=== PATIENT | female | born 1975 | race Caucasian/White ===

== ENCOUNTER 2018-05-12 17:53 | Emergency (ER) | payer OTHER, MEDICAID, SELFPAY ==
[2018-05-12 17:55] VITALS: BP 136/72; PULSE 108; RESP 15; TEMP 37.4; O2SAT 97; BMI 40.5
[2018-05-12 18:19] LABS: Bacteria 0 SEEN /hpf (None Seen); Mucous, Urine 0 SEEN /hpf (<or=2+); Red Blood Cells-Urine 0 SEEN /hpf (0-5)
[2018-05-12 18:21] LABS: Color, Urine Yellow (Yellow); Glucose, Dipstick Normal (Normal); Ketone-Dipstick Negative (Negative); Leukocyte Esterase-Dipstick 25 /ul (Negative); Nitrite-Dipstick Negative (Negative); Occult Blood-Urine 10 /ul (Negative); Protein-Dipstick 30 mg/dl (Negative); Specific Gravity, Urine 1.005 (1.002-1.030); Urine Bilirubin Dipstick Negative (Negative); Urine Clarity Sl. Cloudy (Clear); Urine Urobilinogen Normal (Normal)
[2018-05-12 18:40] LABS: Squamous Epithelial Cells - UA 0-5 SEEN /hpf (5-10); White Blood Cells 0-5 SEEN /hpf (0-5)
[2018-05-12 18:40] LABS: Internal QC Validated? YES +Cl - CLEAR BKGD; Pregnancy, Urine Negative Negative
--- NOTE | 2018-05-12 19:04 | ED.DCSUM_ITS ---
- ER Visit Summary Date of Service: 05/12/18 Chief Complaint: Dysuria History of Present Illness: The patient is a 43 F senior past medical history. Has had prior cholecystectomy and 2 prior C-sections. States for the last 8-11 days she has had some burning with urination. Mild nausea. No vomiting. No diarrhea. No vaginal bleeding or discharge. Last menstrual period was 2 weeks ago. She states that she has had a fever of 99 states that her temperature normally runs 97. She denies any cough, redness of breath or diarrhea. She denies any vaginal bleeding or discharge. Physical Examination: Well-appearing middle-age female. Vital signs are stable afebrile. Temperature 98.4. Pulse ox 97% on room air no signs of hypoxia. No distress. H EENT exam normal. Moist mucous membranes. Neck nontender no lymphadenopathy. No meningismus. Lungs clear to auscultation bilaterally. Heart regular rhythm rate about 100 no murmur. Abdomen is soft. Nondistended. Normal bowel sounds. No peritoneal signs. Both the right upper and right lower quadrant unremarkable. Completely nontender. No hernias or masses. No appreciable organomegaly. She is moving all 4 extremities. Neurovascular intact. Back is nontender. No CVA tenderness. Neurologically she is awake alert with no focal motor deficits. Acting appropriately. Skin no rashes. Test Results: UA was obtained which was normal. No signs of infection. A urine culture was sent just due to her symptoms even though clinically from the lab this does not look with a UTI. Urine test was negative. Emergency Department Course and Treatment: Repeat exam the patient is doing very well at 1900. Abdomen is completely benign. I went over her test results with her. She will be discharged home. Treatment Plan: Plenty of fluids and rest. Tylenol and Motrin as needed. Return if worse. Follow-up with her primary care physician if not improving. Disposition: Discharge Impression: Dysuria of uncertain etiology This note was generated with [employer] dictation software. It may contain incorrect words, spelling, and punctuation that were not noted in review of the chart prior to signing ED Disposition - Plan for ED Patient: Chief Complaint: Flank Pain Referrals: Darrell Medrano DO [Primary Care Provider] -
--- NOTE | 2018-05-12 19:04 | ED.DEP ---
ED Disposition - Plan for ED Patient: Disposition: Home or Assisted Living Chief Complaint: Flank Pain Instructions: Dysuria Referrals: Darrell Medrano DO [Primary Care Provider] - 3-5 Days if not improving Additional Instructions: Plenty of fluids and rest. Tylenol and Motrin for any pain or fever. Follow-up your primary care physician if not improving. Return to the ER if feeling a lot worse.
== END 2018-05-12 19:12 | disposition home or self-care (01) ==
PROVIDERS: Emergency Provider Emergency Medicine; Family Provider Student in an Organized Health Care Education/Training Program; PCP Student in an Organized Health Care Education/Training Program
DX: R30.0 Dysuria (principal)
CPT/HCPCS: 81001; 81025; 87086; 87088; 99282

== ENCOUNTER → 2018-08-02 09:53 | Outpatient (CLI) | payer OTHER, MEDICAID, SELFPAY ==
[2018-08-06 15:16] LABS: HPV HC, High Risk Negative (Negative)
== END ==
PROVIDERS: Visit Provider Obstetrics & Gynecology
DX: Z12.4 Encounter for screening for malignant neoplasm of cervix (principal)
CPT/HCPCS: 87624; 88175; G0145

== ENCOUNTER 2024-02-26 20:09 | Emergency (ER) | payer MEDICAID, SELFPAY ==
[2024-02-26 20:10] VITALS: BP 136/74; PULSE 104; RESP 16; TEMP 36.4; O2SAT 95; BMI 43.7
[2024-02-26 20:56] LABS: Mucous, Urine 0 SEEN /hpf (<or=2+)
[2024-02-26 20:58] LABS: Color, Urine Yellow (Yellow); Glucose, Dipstick Normal (Normal); Ketone-Dipstick Negative (Negative); Leukocyte Esterase-Dipstick 100 /ul (Negative); Nitrite-Dipstick Positive (Negative); Occult Blood-Urine 250 /ul (Negative); Protein-Dipstick 100 mg/dl (Negative); Urine Clarity Cloudy (Clear); Urine Urobilinogen 8 mg/dl (Normal)
[2024-02-26 21:01] LABS: Internal QC Validated? YES +Cl - CLEAR BKGD; Pregnancy, Urine Negative Negative
[2024-02-26 21:02] LABS: Urine Bilirubin Dipstick 6 mg/dL (Negative)
[2024-02-26 21:05] LABS: Red Blood Cells-Urine 25-50 SEEN /hpf (0-5); Squamous Epithelial Cells - UA 0-5 SEEN /hpf (5-10); White Blood Cells 0-5 SEEN /hpf (0-5)
[2024-02-26 21:07] LABS: Bacteria RARE /hpf (None Seen)
[2024-02-26 21:14] VITALS: BP 138/98; PULSE 91; RESP 17; TEMP 36.9; O2SAT 93
--- NOTE | 2024-02-26 21:33 | EX.ED.DYSGE1 ---
HPI <ALICIA Castro - Last Filed: 02/26/24 21:37> History of Present Illness Chief Complaint: Complaint Narrative Narrative: Patient is a 48-year-old female with history of obesity, anxiety who presents to the emergency department for 1 day of dysuria, blood in urine. Patient states that she feels slightly fatigued throughout the week however she denies any back pain, fever chills nausea or vomiting. Patient that she is concerned she might have a UTI and is here for evaluation. She denies any concern for any STI. PFSH <ALICIA Castro - Last Filed: 02/26/24 21:37> [facility] Medical History (Updated 02/26/24 @ 21:35 by ALICIA Castro) Tear of medial meniscus of right knee Osteoarthritis of right knee Thyroiditis Reina's disease Right knee pain Home Medications ?Medication ?Instructions ?Recorded ?Last Taken ?Type norethindrone 0.4 mg-ethinyl 1 tab PO DAILY 05/12/18 05/12/18 History estradiol 35 mcg tablet (Balziva (28)) escitalopram oxalate 10 mg tablet 10 mg PO QDAY 01/11/24 Unknown History loratadine 10 mg tablet (Claritin) 10 mg PO DAILY 01/11/24 Unknown History nitrofurantoin 100 mg PO Q12H 5 days #10 caps 02/26/24 Unknown Rx monohydrate/macrocrystals 100 mg capsule (Macrobid) phenazopyridine 200 mg tablet 200 mg PO TID 2 days #6 tabs 02/26/24 Unknown Rx (Pyridium) Allergy/AdvReac Type Severity Reaction Status Date / Time No Known Allergies Allergy Verified 02/26/24 20:14 Family History Mother Diabetes Heart disease Arthritis Father Cancer Surgical History (Updated 02/26/24 @ 20:32 by Kerline Rodriguez) History of cholecystectomy H/O section History of colonoscopy Social History Smoking Status: Never smoker alcohol intake: current alcohol intake frequency: a few times a week ROS <ALICIA Castro - Last Filed: 02/26/24 21:37> ROS ED ROS Narrative Constitutional: Negative for fever, chills, weight loss, weakness Eyes: Negative for vision loss, vision change, double vision ENT: Negative for any sore throat, ear pain, congestion Cardiovascular: Negative for any chest pain, tightness, palpitations Respiratory: Negative for any cough, sputum production, hemoptysis, dyspnea, dyspnea on exertion, orthopnea Gastrointestinal: Negative for any abdominal pain, nausea, vomiting, diarrhea, constipation, blood in stool, blood in vomit : Negative for any retention. Positive for dysuria, blood in urine, frequency Muscle skeletal: Negative for any neck pain, back pain Neurological: Negative for any headache, syncope, dizziness Skin: Negative for any rashes, itching, abrasions, lacerations Psychiatric: Negative for any depression, anxiety, stress, suicidal ideation, homicidal ideation Hematologic: Negative for any excessive bruising, easy bleeding EXAM <ALICIA Castro - Last Filed: 02/26/24 21:37> Physical Exam Narrative Exam Narrative: Vital signs reviewed. HEET: Head normocephalic atraumatic, TMs clear bilaterally. Posterior pharynx is clear, moist mucous membranes. Nares clear bilaterally. Neck: Supple with no lymphadenopathy or tenderness. No signs of meningismus. Cardiac: Regular rate and rhythm no murmurs gallops or rubs, equal peripheral pulses bilaterally. Respiratory: Lungs clear to auscultation bilaterally. No chest tenderness. Abdomen: Soft, nontender, nondistended. No abdominal bruit or pulsatile masses. No hepatosplenomegaly Extremities: No peripheral edema, no signs of gross trauma or deformity. Active full range of motion of all extremities. Neuro: Cranial nerves II through XII intact, no focal neurological deficits. Skin: Clean dry and intact with no rash, purpura, petechiae, vesicles or pustules. Backs/flank: No CVA tenderness, no midline spinal tenderness, no deformity. Psych: Normal mood and affect. No SI, HI or acute psychosis. Const Vital Signs: 02/26/24 20:10 Temperature 97.5 F L Temperature Source Temporal Pulse Rate 104 H Respiratory Rate 16 Blood Pressure 136/74 H Blood Pressure Mean 94 Pulse Ox 95 Oxygen Delivery Method Room Air <Dr. Sabas Oliveira DO - Last Filed: 02/26/24 21:37> Physical Exam Const Vital Signs: 02/26/24 20:10 Temperature 97.5 F L Temperature Source Temporal Pulse Rate 104 H Respiratory Rate 16 Blood Pressure 136/74 H Blood Pressure Mean 94 Pulse Ox 95 Oxygen Delivery Method Room Air [facility] <ALICIA Castro - Last Filed: 02/26/24 21:37> [facility] Lab Data Labs: Laboratory Results - last 24 hr 02/26/24 20:41 Urine Color Yellow Urine Clarity Cloudy Urine pH 6.0 Ur Specific [place] 1.020 Urine Protein 100 H Urine Glucose (UA) Normal Urine Ketones Negative Urine Occult Blood 250 H Urine Nitrite Positive H Urine Bilirubin 6 H Urine Urobilinogen 8 H Ur Leukocyte Esterase 100 H Urine RBC 25-50 SEEN Urine WBC 0-5 SEEN Ur Squamous Epith Cells 0-5 SEEN Urine Bacteria RARE Urine Mucus 0 SEEN Urine Test Negative Treatment and Re-Evaluation :: Differential diagnosis includes however is not limited to: UTI, obstructing uropathy, pyelonephritis, STI Appears to be in no obvious respiratory distress vital signs are stable, nontoxic-appearing. Presenting to the emergency department with dysuria, blood in urine for 24 hours. Patient is concerned for possible UTI. Patient has no CVA tenderness, patient did receive a urinalysis, urinalysis did show rare bacteria however there was 0-5 white blood cells, 25-50 red blood cells, 100 leukocytes positive nitrites. Secondary to this finding, his urinalysis be sent for culture. Patient be started on Macrobid, as well as Pyridium. She is instructed to take the antibiotics until finished. She will follow-up outpatient. She instructed to return for any worsening back pain fever chills nausea or vomiting. She is happy the plan of care stable for discharge. <Dr. Sabas Oliveira DO - Last Filed: 02/26/24 21:37> [facility] Narrative Medical decision making narrative: Differential diagnosis includes however is not limited to: UTI, obstructing uropathy, pyelonephritis, STI Appears to be in no obvious respiratory distress vital signs are stable, nontoxic-appearing. Presenting to the emergency department with dysuria, blood in urine for 24 hours. Patient is concerned for possible UTI. Patient has no CVA tenderness, patient did receive a urinalysis, urinalysis did show rare bacteria however there was 0-5 white blood cells, 25-50 red blood cells, 100 leukocytes positive nitrites. Secondary to this finding, his urinalysis be sent for culture. Patient be started on Macrobid, as well as Pyridium. She is instructed to take the antibiotics until finished. She will follow-up outpatient. She instructed to return for any worsening back pain fever chills nausea or vomiting. She is happy the plan of care stable for discharge. This patient was seen with a PA/STRUCTURES TECHNICIAN Individually assessed they patient including history and physical. I have reviewed everything on the chart that is available and agree with the documentation provided by the PA/STRUCTURES TECHNICIAN including discussion about the assessment, treatment plan, discussion, and return precautions. Patient presented with dysuria and urinary frequency concern for UTI. She does not have any flank pain or abdominal pain. Urinalysis shows positive nitrites, 25-50 RBCs 0-5 WBCs and 0-5 squamous epithelial cells and rare bacteria. Patient's urine will be sent for culture. Since she is symptomatic we will start her on Macrobid and Pyridium. Lab Data Labs: Laboratory Results - last 24 hr 02/26/24 20:41 Urine Color Yellow Urine Clarity Cloudy Urine pH 6.0 Ur Specific [place] 1.020 Urine Protein 100 H Urine Glucose (UA) Normal Urine Ketones Negative Urine Occult Blood 250 H Urine Nitrite Positive H Urine Bilirubin 6 H Urine Urobilinogen 8 H Ur Leukocyte Esterase 100 H Urine RBC 25-50 SEEN Urine WBC 0-5 SEEN Ur Squamous Epith Cells 0-5 SEEN Urine Bacteria RARE Urine Mucus 0 SEEN Urine Test Negative Discharge Plan Triage Chief Complaint: Complaint ED Midlevel Provider: Brian Moss ED Provider: Sabas Oliveira Dx/Rx/DC Orders Clinical Impression: UTI (urinary tract infection) Instructions: Urinary Tract Infections in Women, ED Hematuria Prescriptions: No Action escitalopram oxalate 10 mg tablet 10 mg PO QDAY loratadine [Claritin] 10 mg tablet 10 mg PO DAILY Balziva (28) 0.4-0.0 tablet 1 tab PO DAILY Patient Comments: Primary Care Provider: Darrell Medrano Referrals: Darrell Medrano DO [Primary Care Provider] - Print Language: Citizen Of [place]
[2024-02-26 21:37] VITALS: BP 138/98; PULSE 94; RESP 19; TEMP 36.9; O2SAT 92
[2024-02-26] MEDS: Nitrofurantoin Macrocrystals 100 MG Capsule PO (21:43)
[2024-02-26] MEDS: Phenazopyridine 95 MG Tablet 190 MG PO (21:43)
== END 2024-02-26 21:44 | disposition home or self-care (01) ==
PROVIDERS: Nurse Practitioner; Emergency Provider Student in an Organized Health Care Education/Training Program; PCP Student in an Organized Health Care Education/Training Program; Visit Provider Student in an Organized Health Care Education/Training Program
DX: N39.0 Urinary tract infection, site not specified (principal); F41.9 Anxiety disorder, unspecified; Z79.899 Other long term (current) drug therapy
CPT/HCPCS: 81001; 81025; 87086; 87088; 99282